=== PATIENT | female | born 1955 | race Caucasian/White ===

== ENCOUNTER 2017-05-14 10:36 | Emergency (ER) | payer BC ==
[2017-05-14 10:49] VITALS: BP 156/74
[2017-05-14] MEDS ORDERED: Take Home: Amoxicillin/Clavulanate K 875-125 MG Tab, 2 Tab Pack PO ONE (11:00)
[2017-05-14] MEDS ORDERED: Hydrocortisone/Neomycin/Polymyxin B Otic Susp 10 ML Bottle EARRT SCH (11:00)
--- NOTE | 2017-05-15 09:04 | ER ---
Date of Service: 05/14/2017 SUBJECTIVE: Wendy presents to the emergency room with complaints of right ear pain. She states that she woke with this symptoms at approximately 2 o'clock this morning. The patient states that she has not been experiencing any fever or chills. She states that she has not been swimming, has not put anything into her ears, and states that she has not noticed any discharge from the ear. She does have some tragal tenderness as well as discomfort radiating into the right lateral aspect of her neck. PAST MEDICAL HISTORY: 1. Tonsillectomy. 2. Hysterectomy. 3. Shoulder surgery. MEDICATIONS: None. ALLERGIES: NKDA. REVIEW OF SYSTEMS: Denies any fever, chills, or discharge. She does complain of a "watery" sound in her right ear. PHYSICAL EXAMINATION: General: A 61-year-old female patient, who is in no acute distress. Vital Signs: Blood pressure is 156/74, heart rate is 94, O2 saturation is 97%, respiratory rate 16, and temperature is 36.0. Skin: Warm, pink, and dry. HEENT: Evaluation of the patient's right ear reveals swelling to the external canal and erythema to the tympanic membrane. There is also some redundant dried tissue in the external canal which does not allow for complete visualization of the TM. Appearance at this time is most consistent with an otitis externa as well as otitis media. ASSESSMENT: 1. Otitis externa. 2. Otitis media. PLAN: The patient will be started on Augmentin 875 mg 1 twice daily for 10 days. Also, started her on Cortisporin drops 4 drops to the right ear 4 times daily for 10 days. Examination of the patient's right TM was quite painful, so we will treat the infection and have her re-evaluated in 10 to 14 days. Certainly, she could have an injury to the tympanic membrane given her symptoms she is experiencing, but I am unable to visualize anything due to the swelling to the meatus of the external canal. All questions were answered. MWK: 05/14/2017 12:19:12 MODL: 05/14/2017 16:22:22 /[id number]
== END 2017-05-14 11:16 | disposition home or self-care (01) ==
LOC: VM.ED 10:36
DX: H60.91 Unspecified otitis externa, right ear (principal); H66.91 Otitis media, unspecified, right ear; Z90.89 Acquired absence of other organs; Z90.710 Acquired absence of both cervix and uterus
CPT/HCPCS: 99282; A9270